=== PATIENT | male | born 1965 | race American Indian/Alaskan Native ===

== ENCOUNTER 2016-09-17 02:09 | Emergency (ER) | payer SELFPAY ==
--- NOTE | 2016-09-17 03:23 | XRay Report ---
FINAL REPORT EXAM: XR CHEST ROUTINE 2V HISTORY: Shortness of breath COMPARISON: None available. FINDINGS:: Frontal and lateral views of the chest obtained. Mild cardiac enlargement. Shallow inspiration with crowding of bronchovascular markings. Motion limits evaluation on the lateral view. No large consolidation or effusion. No pneumothorax. Bony structures are grossly intact. IMPRESSION:: Mild cardiac enlargement. Shallow inspiration. Crowding of the bronchovascular markings. No large consolidation or effusion. Minimal congestion cannot be excluded.
[2016-09-17 03:31] LABS: Basophils % (Auto) 0.8 % (0.0-1.8); Eosinophils % (Auto) 0.4 % (0.0-4.3); Hematocrit 41.5 % (35.5-45.6); Hemoglobin 13.6 gm/dl (11.8-15.2); Mean Corpuscular HGB Conc 33 % (32-34); Mean Corpuscular Hemoglobin 27 pg (28-32); Mean Corpuscular Volume 83 fl (84-94); Platelet Count 245 K/mm3 (140-440); White Blood Count 8.3 K/mm3 (4.5-11.0)
[2016-09-17 03:55] LABS: BUN/Creatinine Ratio 8.18; Blood Urea Nitrogen 9 mg/dL (9-20); Carbon Dioxide 30 mmol/L (22-30); Chloride 96.8 mmol/L (98-107); Glucose 107 mg/dL (75-100); Potassium 3.3 mmol/L (3.6-5.0); Sodium 137 mmol/L (137-145)
[2016-09-17 04:01] LABS: Anion Gap 14 mmol/L
[2016-09-17] MEDS ORDERED: K-DUR PO ONE ×2 (06:57→08:31)
[2016-09-17] MEDS ORDERED: DUONEB 0.5 MG-3 MG/3 ML SOLN IH ONE ×2 (07:44→12:54)
--- NOTE | 2016-09-17 07:47 | Emergency Department Report ---
HPI - General Chief Complaint: Dyspnea/Respdistress Time Seen by Provider: 09/17/16 06:04 - HPI HPI: 51-year-old Afro[place] male presents to the emergency department with a 1.5 history of intermittent shortness of breath. He says over that time he's had a very bad dry cough. He denies any chest pain, back pain, fever, nausea, vomiting, or diaphoresis he has not taken anything for symptoms prior to presentation. He is a tobacco smoker but denies any illicit drug use. He does not have a primary care doctor. Recent travel or sick contacts at home. He does have a history of hypertension. He also is concerned as he has a history of a pericardial effusion that required 1.8 L of fluid to be removed about 3 years ago. ED Past Medical Hx - Past Medical History Hx Hypertension: Yes - Surgical History Past Surgical History?: Yes Additional Surgical History: pulled 1.8 liters of fluid from around heart 3 years ago - Social History Smoking Status: Current Every Day Smoker Substance Use Type: Alcohol - Medications Home Medications: Home Medications Medication Instructions Recorded Confirmed Last Taken Type ALBUTEROL Inhaler [ProAir HFA 2 puff IH QID PRN #1 inhalation 09/17/16 Unknown Rx Inhaler] Azithromycin [Zithromax Z-NIKI] 250 mg PO DAILY #6 tab 09/17/16 Unknown Rx guaiFENesin/CODEINE [Robitussin AC] 5 ml PO Q6H PRN #100 ml 09/17/16 Unknown Rx ED Review of Systems ROS: Stated complaint: SHORTNESS OF BREATH Other details as noted in HPI Comment: All other systems reviewed and negative Constitutional: denies: chills, fever Eyes: denies: eye pain, eye discharge, vision change ENT: denies: ear pain, throat pain Respiratory: cough, shortness of breath. denies: wheezing Cardiovascular: denies: chest pain, palpitations Gastrointestinal: denies: abdominal pain, nausea, diarrhea Genitourinary: denies: urgency, dysuria Musculoskeletal: denies: back pain, joint swelling, arthralgia Skin: denies: rash, lesions Neurological: denies: headache, weakness, paresthesias Physical Exam - Physical Exam Vital Signs: Vital Signs 09/17/16 09/17/16 02:34 06:01 Temperature 98.8 F Pulse Rate 87 97 H Respiratory 18 Rate Blood Pressure 178/102 Blood Pressure 154/88 [Left] O2 Sat by Pulse 97 99 Oximetry Physical Exam: GENERAL: The patient is well-developed well-nourished. HEENT: Normocephalic. Atraumatic. Extraocular motions are intact. Patient has moist mucous membranes. Pupils equal reactive to light bilaterally. NECK: Supple. Trachea is midline. CHEST/LUNGS: Clear to auscultation. No cough heard during examination. There is no respiratory distress noted. HEART/CARDIOVASCULAR: Regular. There is no tachycardia. There is no gallop rub or murmur. ABDOMEN: Abdomen is soft, nontender. Patient has normal bowel sounds. There is no abdominal distention. Obese habitus. SKIN: There is no rash. There is no diaphoresis. NEURO: The patient is awake, alert, and oriented. The patient is cooperative. The patient has no focal neurologic deficits. The patient has normal speech. MUSCULOSKELETAL: There is no tenderness or deformity. There is no limitation range of motion. There is no evidence of acute injury. ED Course Vital Signs 09/17/16 09/17/16 02:34 06:01 Temperature 98.8 F Pulse Rate 87 97 H Respiratory 18 Rate Blood Pressure 178/102 Blood Pressure 154/88 [Left] O2 Sat by Pulse 97 99 Oximetry ED Medical Decision Making - Lab Data Result diagrams: 09/17/16 03:10 09/17/16 03:10 - EKG Data -: EKG Interpreted by Me EKG shows normal: sinus rhythm, axis, intervals, QRS complexes, ST-T waves ( nonspecific T-wave) Rate: normal - EKG Data When compared to previous EKG there are: previous EKG unavailable Interpretation: nonspecific ST-T wave brant - Radiology Data Radiology results: report reviewed, image reviewed interpreted by me: Chest x-ray did not show any acute process. Heart is normal shape and size. No effusions. No pneumothorax. No signs of pneumonia seen. CT angiography of the chest does not show any pulmonary embolism, dissection or any acute process. - Medical Decision Making 51-year-old male presents to the emergency department with 1-2 months of a dry cough and feeling as if he is short of breath. He was evaluated with physical exam, labs, imaging and EKG. Physical exam the patient is morbidly obese but has normal sounding heart and lungs to auscultation. There is no cough heard during this examination. His vital signs are stable throughout ED course including being afebrile and no significant hypoxia. Patient's labs are mostly unremarkable and included negative troponins 2 but he did have a slightly elevated in equivocal dimer. Chest x-ray does not show any obvious pneumonia, pleural effusions or any acute process. Due to the slightly elevated d-dimer, a CT angiography of the chest was done that did not show any pulmonary embolism , dissection or any acute process. Patient was given a breathing treatment and says he is feeling slightly better. His main concern is that he will start coughing with coughing fits. Based on the patient's examination and his history sounds as if the patient is dealing with some bronchitis. He is not having any chest pain and has not had any. He does not have any signs of respiratory distress. Patient appears safe for discharge home. He was discharged home with an albuterol inhaler, Z-Niki and Robitussin-AC. He was given referrals for primary care. He will return to the ER with any worsening of his symptoms or any acute distress. - Differential Diagnosis bronchitis, pneumonia, CHF, PE, PR Critical Care Time: No Critical care attestation.: If time is entered above; I have spent that time in minutes in the direct care of this critically ill patient, excluding procedure time. ED Disposition Clinical Impression: Bronchitis Hypertension Qualifiers: Hypertension type: essential hypertension Qualified Code(s): I10 - Essential ( primary) hypertension Disposition: DISCHARGED TO HOME OR SELFCARE Is pt being admited?: No Condition: Stable Instructions: Acute Bronchitis (ED), Hypertension (ED) Additional Instructions: Please follow up with one of the primary care clinics that I had given you a referral to. Return to the emergency department with any worsening of your symptoms or any acute distress. Please quit smoking as there are no health benefits to smoking. You've been prescribed a medication that is sedating. Therefore this medication cannot be mixed with alcohol, or taken prior to driving, working, or being responsible for children. Prescriptions: ALBUTEROL Inhaler [ProAir HFA Inhaler] 2 puff IH QID PRN #1 inhalation PRN Reason: Shortness Of Breath Azithromycin [Zithromax Z-NIKI] 250 mg PO DAILY #6 tab guaiFENesin/CODEINE [Robitussin AC] 5 ml PO Q6H PRN #100 ml PRN Reason: Cough Referrals: PRIMARY CARE, [Primary Care Provider] - 3-5 Days [facility] [Outside] - 3-5 Days [facility] [Outside] - 3-5 Days [facility] [Outside] - 3-5 Days Time of Disposition: 12:17
[2016-09-17] MEDS ORDERED: NACL ONE ×2 (09:02→09:39)
--- NOTE | 2016-09-17 11:32 | Cat Scan Report ---
CTA chest: History: Shortness of breath, and elevated d-dimer. Findings: No evidence of aortic aneurysm or pulmonary embolism. No mediastinal mass. No mediastinal, hilar or axillary adenopathy. No pleural or pericardial effusion. Normal lung parenchyma. No discrete nodularity or consolidation. Impression: Essentially negative CTA chest.
[2016-09-17 12:58] VITALS: BP 127/92
== END 2016-09-17 13:05 | disposition home or self-care (01) ==
LOC: ED 02:09
DX: J40 Bronchitis, not specified as acute or chronic (principal); I10 Essential (primary) hypertension; F17.200 Nicotine dependence, unspecified, uncomplicated
CPT/HCPCS: 36415; 71020; 71275; 80048; 83880; 84484; 85025; 85379; 93005; 93010; 99285; Q9967

== ENCOUNTER 2016-10-30 07:20 | Emergency (ER) | payer SELFPAY ==
[2016-10-30 08:18] LABS: Basophils % (Auto) 0.7 % (0.0-1.8); Eosinophils % (Auto) 1.4 % (0.0-4.3); Hematocrit 40.3 % (35.5-45.6); Hemoglobin 13.1 gm/dl (11.8-15.2); Mean Corpuscular HGB Conc 33 % (32-34); Mean Corpuscular Hemoglobin 27 pg (28-32); Mean Corpuscular Volume 84 fl (84-94); Platelet Count 250 K/mm3 (140-440); Red Blood Count 4.81 M/mm3 (3.65-5.03); Red Cell Distribution Width 16.1 % (13.2-15.2); White Blood Count 9.4 K/mm3 (4.5-11.0)
[2016-10-30 08:29] LABS: Alanine Aminotransferase 14 units/L (7-56); Albumin 3.9 g/dL (3.9-5); Alkaline Phosphatase 78 units/L (35-129); Anion Gap 15 mmol/L; BUN/Creatinine Ratio 14.54; Bilirubin,Total 0.3 mg/dL (0.1-1.2); Blood Urea Nitrogen 16 mg/dL (9-20); Calcium 9.4 mg/dL (8.4-10.2); Carbon Dioxide 28 mmol/L (22-30); Chloride 100.6 mmol/L (98-107); Glucose 128 mg/dL (75-100); Lipase 12 units/L (13-60); Potassium 4.2 mmol/L (3.6-5.0); Sodium 139 mmol/L (137-145)
[2016-10-30 18:37] LABS: Bilirubin,Urine NEG (Negative); Blood,Urine NEG (Negative); Ketones,Urine NEG (Negative); Leukocyte Esterase,Urine NEG (Negative); Mucus,Urine 2+ /HPF; Nitrite,Urine NEG (Negative); Urobilinogen,Urine < 2.0 mg/dL (<2.0)
[2016-10-30] MEDS ORDERED: NACL ONE (20:02)
[2016-10-30] MEDS ORDERED: ZOFRAN IV ONE (20:28)
[2016-10-30] MEDS ORDERED: DILAUDID IV ONE (20:28)
--- NOTE | 2016-10-30 21:52 | Cat Scan Report ---
FINAL REPORT EXAM: CT ABDOMEN PELVIS W CON HISTORY: umbilicus hernia TECHNIQUE: Spiral CT scanning of the abdomen and pelvis after the uneventful administration of IV contrast. Multiplanar reformations. 100 mL Omnipaque IV. PRIORS: None. FINDINGS: Abdomen: Visualized lung bases show mild, patchy and partially confluent, parenchymal opacities bilaterally. No radiopaque gallstones. Liver without significant abnormality. Spleen without significant abnormality. Pancreas without significant abnormality. Approximately 2 mm calcification right renal upper pole without significant hydronephrosis. Possible subcentimeter cysts in left kidney, but too small to adequately characterize. Adrenal glands without significant abnormality. Pelvis: Moderate umbilical hernia containing mostly fat, with some soft tissue stranding or edema and very small amount of fluid attenuation. Bowel grossly unremarkable. Possible diminutive appendix partially visualized and grossly unremarkable. No significant free peritoneal fluid or apparent adenopathy. Abdominal aorta non-aneurysmal. Fat-containing, bilateral inguinal hernias. Degenerative changes in thoracolumbar spine. IMPRESSION: 1. Moderate umbilical hernia, with probable mild postinflammatory change. 2. Nonobstructing right renal calcification. 3. Possible small left cysts, but nonspecific. Correlation with renal ultrasound may be confirmatory, as clinically indicated. 4. Findings which may represent bibasilar atelectasis, mild infiltrates or postinflammatory change and scarring of uncertain etiology or chronicity. Correlate clinically.
--- NOTE | 2016-10-30 22:12 | Emergency Department Report ---
ED Abdominal Pain HPI - General Chief Complaint: Abdominal Pain Stated Complaint: ABD PAIN Time Seen by Provider: 10/30/16 20:06 Source: patient, EMS Mode of arrival: Wheelchair Limitations: No Limitations - History of Present Illness Initial Comments: 51-year-old male with a past medical history of morbid obesity, hypertension, and chronic umbilical hernia presents to the hospital complaining of abdominal pain. Pain has been going on since this morning. She complains of a dull pain to the mid abdomen and right back as intermittent. Pain rated 6/10 in intensity. Worse with palpation. Back pain can be severe at times, worse with movement and alleviated when passing gas. Patient had nausea with 5 episodes of vomiting since yesterday. Patient had a watery bowel movement today after taking 5 Dulcolax tablets. Patient without pain secondary to constipation. Patient had a normal bowel movement 2 days ago. Patient umbilical hernia repair as a child but has had a chronic hernia for the past 1.5 years. It fluctuates in size and he is typically not able to completely reduce it. Positive increase in pain. No reports of fever. Patient complain of chronic intermittent right medial knee pain recently movement and palpation. Severity scale (0 -10): 10 - Related Data Previous Rx's Medication Instructions Recorded Last Taken Type Ibuprofen [Motrin] 800 mg PO Q8HR PRN #30 tablet 10/30/16 Unknown Rx Ondansetron [Zofran Odt] 4 mg PO Q8HR PRN #20 tab.rapdis 10/30/16 Unknown Rx traMADol [Ultram 50 MG tab] 50 mg PO Q6HR PRN #20 tablet 10/30/16 Unknown Rx Allergies Allergy/AdvReac Type Severity Reaction Status Date / Time No Known Allergies Allergy Unverified 09/17/16 02:45 ED Review of Systems ROS: Stated complaint: ABD PAIN Other details as noted in HPI Comment: All other systems reviewed and negative Other: Constitutional: No fevers chills Eyes: No eye pain visual changes ENT: No ear pain or throat pain Neck: Denies pain Respiratory: Denies cough wheezing shortness of breath Cardiovascular: Denies chest pain, palpitations, syncope GI: as per hpi : Denies dysuria, urinary frequency, or urgency Musculoskeletal: chronic right knee pain Skin: Denies rash, lesions, erythema Neurologic: Denies headache, numbness, weakness ED Past Medical Hx - Past Medical History Previous Medical History?: Yes Hx Hypertension: Yes Additional medical history: abd. pain and umbilical hernia, pericarditis - Surgical History Past Surgical History?: Yes Additional Surgical History: pulled 1.8 liters of fluid from around heart 3 years ago - Social History Smoking Status: Current Every Day Smoker Substance Use Type: Other - Medications Home Medications: Home Medications Medication Instructions Recorded Confirmed Last Taken Type Ibuprofen [Motrin] 800 mg PO Q8HR PRN #30 tablet 10/30/16 Unknown Rx Ondansetron [Zofran Odt] 4 mg PO Q8HR PRN #20 tab.rapdis 10/30/16 Unknown Rx traMADol [Ultram 50 MG tab] 50 mg PO Q6HR PRN #20 tablet 10/30/16 Unknown Rx ED Physical Exam - General Limitations: No Limitations - Other Other exam information: General: No limitations, patient is alert in no acute distress Head exam: Atraumatic, normocephalic Eyes exam: Normal appearance, pupils equal reactive to light, extraocular movements intact ENT: Moist mucous membrane, normal oropharynx Neck exam: Normal inspection, full range of motion, no meningismus nontender Respiratory exam: Clear to auscultation bilateral, no wheezes, rales, crackles Cardiovascular: Normal rate and rhythm, normal heart sounds Abdomen: Soft, nondistended, palpable supraumbilical hernia versus to palpation. After patient was medicated with Dilaudid and Zofran as able to reduce the hernia however it will come right back out. Extremity: Full range of motion normal inspection no deformity Back: Normal Inspection, full range of motion, no tenderness Neurologic: Alert, oriented x3, cranial nerves intact, no motor or sensory deficit Psychiatric: normal affect, normal mood Skin: Warm, dry, intact ED Course Vital Signs 10/30/16 10/30/16 10/30/16 07:31 17:56 20:20 Temperature 98.9 F 97.5 F L 98.5 F Pulse Rate 78 86 80 Respiratory 18 20 18 Rate Blood Pressure 156/102 161/103 Blood Pressure 167/96 [Right] O2 Sat by Pulse 95 98 97 Oximetry - Reevaluation(s) Reevaluation #1: 10/30/16 22:14 Pain improved after Dilaudid and Zofran ED Medical Decision Making - Lab Data Result diagrams: 10/30/16 07:59 10/30/16 07:59 - Radiology Data Radiology results: report reviewed, image reviewed (right knee x-ray: No acute findings) CT abdomen and pelvis with IV contrast: Moderate under the cardiac ecchymoses that was some soft tissue stranding or edema very small amount of fluid attenuation. No obstructive renal right calcification. Possible small left renal cyst nonspecific. Bibasilar atelectasis versus minimal infiltrates versus posterior inflammatory changes and scarring of uncertain etiology or chronicity. - Medical Decision Making Pain improved with ED treatment. No significant abnormality identified on CT. Patient will be discharged home to follow up with a surgeon to discuss repair of umbilical hernia. Tramadol and Colace will be provided for pain. - Differential Diagnosis constipation, gastritis, incarcerated hernia, obstruction, chronic hernia Critical Care Time: No Critical care attestation.: If time is entered above; I have spent that time in minutes in the direct care of this critically ill patient, excluding procedure time. ED Disposition Clinical Impression: Umbilical hernia, Abdominal pain, Knee pain, right Disposition: DISCHARGED TO HOME OR SELFCARE Is pt being admited?: No Does the pt Need Aspirin: No Condition: Stable Instructions: Umbilical Hernia (ED), Knee Pain (ED) Additional Instructions: Taken the Medication as needed for pain. Tramadol may worsen constipation and therefore you you may take your Colace only as directed if constipation occurs. Follow-up with the surgeon provided to discuss surgical options for your hernia. Follow with orthopedic doctor regarding treatment of your ongoing knee pain. Prescriptions: Ibuprofen [Motrin] 800 mg PO Q8HR PRN #30 tablet PRN Reason: Pain Ondansetron [Zofran Odt] 4 mg PO Q8HR PRN #20 tab.rapdis PRN Reason: Nausea And Vomiting traMADol [Ultram 50 MG tab] 50 mg PO Q6HR PRN #20 tablet PRN Reason: Pain Referrals: PRIMARY CARE, [Primary Care Provider] - 3-5 Days RAH LAZO MD [Staff Physician] - 3-5 Days (Surgeon) MATTIE BURGESS MD [Staff Physician] - 3-5 Days (Orthopedics ) Time of Disposition: 23:13
[2016-10-31 00:15] VITALS: BP 142/67
--- NOTE | 2016-10-31 10:13 | XRay Report ---
RIGHT KNEE, 2 VIEWS History: Right knee pain. Findings: Normal bone mineralization. There is mild medial compartment joint space narrowing and minimal retropatellar spurring. No evidence for fracture, bone lesion or large joint effusion. Small enthesophyte on the superior patella is noted. Impression: Mild osteoarthritic changes.
== END 2016-10-30 23:30 | disposition home or self-care (01) ==
LOC: ED 07:20
DX: K42.9 Umbilical hernia without obstruction or gangrene (principal); M25.561 Pain in right knee; I10 Essential (primary) hypertension; F17.200 Nicotine dependence, unspecified, uncomplicated
CPT/HCPCS: 36415; 73560; 74177; 80053; 81001; 83690; 85025; 96374; 96375; 99285; J1170; J2405; Q9967